=== PATIENT | female | born 1995 | race Caucasian/White ===

== ENCOUNTER 2019-06-11 17:44 | Inpatient (IN) | payer OTHER ==
[~2019-06-11] VITALS: Ht 172.7 cm; Wt 81.8 kg
[2019-06-11 17:58] VITALS: BP 143/93
[2019-06-11 18:45] LABS: BASOPHILS # (AUTO) 0.05 x10^3/uL (0-0.1); BASOPHILS % (AUTO) 1 % (0-1); EOSINOPHILS # (AUTO) 0.08 x10^3/uL (0-0.4); EOSINOPHILS % (AUTO) 1 % (1-7); LYMPHOCYTES # (AUTO) 1.97 x10^3/uL (1-3.4); LYMPHOCYTES % (AUTO) 20 % (22-44); MD NO; MEAN CORPUSCULAR HEMOGLOBIN 31.8 pg (27.0-34.8); MEAN CORPUSCULAR HGB CONC 33.5 g/dL (32.4-35.8); MEAN CORPUSCULAR VOLUME 94.8 fL (80-100); MEAN PLATELET VOLUME 7.9 fL (7.4-10.4); MONOCYTES % (AUTO) 9 % (2-9); NEUTROPHILS # (AUTO) 6.85 x10^3/uL (1.8-6.8); NEUTROPHILS % (AUTO) 70 % (42-75); PLATELET COUNT 171 x10^3/uL (130-400); RED BLOOD COUNT 3.91 x10^6/uL (3.82-5.3); RED CELL DISTRIBUTION WIDTH 13.7 % (9.6-15.2)
[2019-06-11 18:48] LABS: MICROSCOPIC INDICATED
[2019-06-11 18:56] LABS: ALANINE AMINOTRANSFERASE 16 U/L (12-78); ALBUMIN 2.5 g/dL (3.4-5.0); ANION GAP 6 mmol/L (5-15); CALCIUM 8.5 mg/dL (8.5-10.1); CHLORIDE 107 mmol/L (98-107); CREATININE 0.86 mg/dL (0.55-1.02)
[2019-06-11 19:03] LABS: ALKALINE PHOSPHATASE 117 U/L (45-117); BILIRUBIN,TOTAL 0.2 mg/dL (0.2-1.0)
[2019-06-11] MEDS ORDERED: OXYTOCIN 30U/ 0.9% NaCL 500ML 500 ML IV ONE (20:46)
[2019-06-11] MEDS ORDERED: D5%-LACTATED RINGERS 1,000 ML IV SCH (20:46)
[2019-06-11] MEDS ORDERED: FENTANYL PF 100 MCG/2ML IV PRN (21:00)
[2019-06-11] MEDS ORDERED: CALCIUM CARBONATE 500 MG TAB.CHEW PO PRN (21:00)
[2019-06-11] MEDS ORDERED: FENTANYL PF 100 MCG/2ML IVPush PRN (21:00)
[2019-06-11] MEDS ORDERED: TERBUTALINE 1 MG/ML, 1ML IVPush PRN (21:00)
[2019-06-11] MEDS ORDERED: ONDANSETRON 2MG/ML, 2ML IVPush PRN (21:00)
[2019-06-11] MEDS ORDERED: MISOPROSTOL 25 MCG TABLET VG PRN (21:00)
[2019-06-11] MEDS ORDERED: TERBUTALINE 1 MG/ML, 1ML SQ PRN (21:00)
[2019-06-11 21:12] LABS: BASOPHILS # (AUTO) 0.04 x10^3/uL (0-0.1); BASOPHILS % (AUTO) 0 % (0-1); EOSINOPHILS # (AUTO) 0.07 x10^3/uL (0-0.4); EOSINOPHILS % (AUTO) 1 % (1-7); LYMPHOCYTES # (AUTO) 2.32 x10^3/uL (1-3.4); LYMPHOCYTES % (AUTO) 22 % (22-44); MD NO; MEAN CORPUSCULAR HEMOGLOBIN 31.6 pg (27.0-34.8); MEAN CORPUSCULAR HGB CONC 33.2 g/dL (32.4-35.8); MEAN CORPUSCULAR VOLUME 95.2 fL (80-100); MEAN PLATELET VOLUME 8.1 fL (7.4-10.4); MONOCYTES % (AUTO) 8 % (2-9); NEUTROPHILS # (AUTO) 7.43 x10^3/uL (1.8-6.8); NEUTROPHILS % (AUTO) 69 % (42-75); PLATELET COUNT 178 x10^3/uL (130-400); RED BLOOD COUNT 4.08 x10^6/uL (3.82-5.3); RED CELL DISTRIBUTION WIDTH 14.1 % (9.6-15.2)
[2019-06-11] MEDS ORDERED: MISOPROSTOL 25 MCG TABLET ONE (22:16)
[2019-06-12] MEDS ORDERED: OXYTOCIN 30U/ 0.9% NaCL 500ML 500 ML IV PRN (02:30)
[2019-06-12] MEDS ORDERED: OXYTOCIN 30U/ 0.9% NaCL 500ML 500 ML ONE ×2 (02:34→19:32)
[2019-06-12] MEDS: LACTATED RINGERS 1,000 ML IV SCH ×5 (04:27→17:48)
[2019-06-12] MEDS ORDERED: PREN1TAB60 PO (07:19)
[2019-06-12] MEDS ORDERED: albuterol inhaler (07:19)
[2019-06-12] MEDS ORDERED: FENTANYL PF 500 MCG, BUPIVACAINE/PF 0.5%, 30ML 62.5 ML in SODIUM CHLORIDE 0.9% 177.5 ML EPIDCONT SCH (08:48)
[2019-06-12] MEDS ORDERED: FENTANYL PF 100 MCG/2ML ONE ×2 (09:46→18:52)
[2019-06-12] MEDS ORDERED: BUPIVACAINE 0.25% ONE ×2 (09:47→09:50)
[2019-06-12] MEDS ORDERED: FENTANYL/BUPIV./NS/PF 250 ML EPIDCONT ONE (09:50)
[2019-06-12] MEDS ORDERED: LIDOCAINE/PF 1%-EPI 1:200K, 30ML ONE (09:50)
[2019-06-12] MEDS ORDERED: FENTANYL/BUPIV./NS/PF 250 ML EPIDCONT SCH (10:35)
[2019-06-12] MEDS ORDERED: DIPHENHYDRAMINE 50 MG/ML, 1ML IVPush PRN (11:00)
[2019-06-12] MEDS ORDERED: LACTATED RINGERS 1,000 ML IVBOLUS PRN (11:00)
[2019-06-12] MEDS ORDERED: ONDANSETRON 2MG/ML, 2ML IVPush PRN (11:00)
[2019-06-12] MEDS ORDERED: LIDOCAINE 1%, 20ML ONE (16:11)
[2019-06-12] MEDS ORDERED: MISOPROSTOL 200 MCG TABLET ONE (16:11)
[2019-06-12] MEDS ORDERED: SIMETHICONE 80 MG CHEW TAB PO PRN (19:30)
[2019-06-12] MEDS ORDERED: ACETAMINOPHEN 325 MG TABLET PO PRN (19:30)
[2019-06-12] MEDS ORDERED: OXYcodone/APAP 5/325MG TABLET PO PRN (19:30)
[2019-06-12] MEDS ORDERED: ONDANSETRON 2MG/ML, 2ML IV PRN (19:30)
[2019-06-12] MEDS ORDERED: MISOPROSTOL 200 MCG TABLET PR PRN (19:30)
[2019-06-12] MEDS ORDERED: METHYLERGONOVINE 0.2 MG/ML IM PRN (19:30)
[2019-06-12] MEDS: OXYTOCIN 30U/ 0.9% NaCL 500ML 500 ML IV SCH (19:49)
[2019-06-12] MEDS ORDERED: OXYcodone/APAP 5/325MG TABLET ONE (20:07)
[2019-06-12] MEDS: OXYcodone/APAP 5/325MG TABLET PO PRN (20:09)
[2019-06-12] MEDS ORDERED: IBUPROFEN 600 MG TABLET ONE (20:23)
[2019-06-12] MEDS: IBUPROFEN 600 MG TABLET PO PRN (20:24)
[2019-06-12] MEDS ORDERED: MISOPROSTOL 200 MCG TABLET PR ONE (21:00)
[2019-06-12 22:00] VITALS: BP 136/90
[2019-06-13] VITALS (10 sets, daily range): BP systolic 119–138; BP diastolic 78–89
[2019-06-13] MEDS: OXYcodone/APAP 5/325MG TABLET PO PRN (00:51)
[2019-06-13 01:43] LABS: MEAN CORPUSCULAR HEMOGLOBIN 31.9 pg (27.0-34.8); MEAN CORPUSCULAR HGB CONC 33.3 g/dL (32.4-35.8); MEAN CORPUSCULAR VOLUME 95.9 fL (80-100); MEAN PLATELET VOLUME 7.5 fL (7.4-10.4); PLATELET COUNT 210 x10^3/uL (130-400); RED BLOOD COUNT 3.23 x10^6/uL (3.82-5.3); RED CELL DISTRIBUTION WIDTH 13.7 % (9.6-15.2)
[2019-06-13 02:07] LABS: BASOPHILS # (AUTO) 0.04 x10^3/uL (0-0.1); BASOPHILS % (AUTO) 0 % (0-1); EOSINOPHILS # (AUTO) 0.01 x10^3/uL (0-0.4); EOSINOPHILS % (AUTO) 0 % (1-7); LYMPHOCYTES # (AUTO) 2.13 x10^3/uL (1-3.4); LYMPHOCYTES % (AUTO) 11 % (22-44); MD SCAN; MONOCYTES # (AUTO) 0.96 x10^3/uL (0.2-0.8); MONOCYTES % (AUTO) 5 % (2-9); NEUTROPHILS # (AUTO) 15.74 x10^3/uL (1.8-6.8); NEUTROPHILS % (AUTO) 83 % (42-75)
[2019-06-13] MEDS: OXYTOCIN 30U/ 0.9% NaCL 500ML 500 ML IV SCH ×3 (02:38→11:19)
[2019-06-13] MEDS ORDERED: FENTANYL PF 100 MCG/2ML ONE ×3 (02:48→07:13)
[2019-06-13] MEDS ORDERED: MISOPROSTOL 200 MCG TABLET ONE (03:01)
[2019-06-13] MEDS ORDERED: FENTANYL PF 100 MCG/2ML IV PRN ×2 (03:30→08:30)
[2019-06-13] MEDS ORDERED: MISOPROSTOL 200 MCG TABLET PR ONE (03:30)
[2019-06-13] MEDS ORDERED: METOCLOPRAMIDE 5 MG/ML, 2ML ONE (07:13)
[2019-06-13] MEDS ORDERED: DEXAMETHASONE 4 MG/ML, 1ML ONE ×2 (07:13)
[2019-06-13] MEDS ORDERED: ONDANSETRON 2MG/ML, 2ML ONE (07:13)
[2019-06-13] MEDS ORDERED: SUCCINYLCHOLINE 20 MG/ML, 10ML ONE (07:26)
[2019-06-13] MEDS ORDERED: CEFAZOLIN 1,000 MG ONE ×2 (07:26)
[2019-06-13] MEDS ORDERED: PROPOFOL 10 MG/ML, 20ML ONE (07:26)
[2019-06-13 08:18] LABS: MEAN CORPUSCULAR HEMOGLOBIN 32.2 pg (27.0-34.8); MEAN CORPUSCULAR HGB CONC 33.7 g/dL (32.4-35.8); MEAN CORPUSCULAR VOLUME 95.5 fL (80-100); MEAN PLATELET VOLUME 7.4 fL (7.4-10.4); PLATELET COUNT 173 x10^3/uL (130-400); RED CELL DISTRIBUTION WIDTH 14.2 % (9.6-15.2)
[2019-06-13 08:21] LABS: HEMOGRAM NOTE RECHECKED
[2019-06-13] MEDS ORDERED: KETOROLAC 30 MG/1 ML ONE (08:22)
[2019-06-13] MEDS ORDERED: OXYTOCIN 30U/ 0.9% NaCL 500ML 500 ML ONE (08:23)
[2019-06-13] MEDS ORDERED: DIPHENHYDRAMINE 50 MG/ML, 1ML IVPush PRN (08:30)
[2019-06-13] MEDS ORDERED: HALOPERIDOL 5 MG/ML IV PRN (08:30)
[2019-06-13] MEDS ORDERED: ALBUTEROL SULFATE 2.5 MG/3 ML NPPB PRN (08:30)
[2019-06-13] MEDS ORDERED: ONDANSETRON 2MG/ML, 2ML IV PRN (08:30)
[2019-06-13] MEDS ORDERED: LABETALOL 5MG/ML, 20ML IV PRN (08:30)
[2019-06-13] MEDS ORDERED: OXYcodone 5 MG/5 ML ORAL.SOL UDC PO PRN (08:30)
[2019-06-13] MEDS ORDERED: DEXAMETHASONE 4 MG/ML, 1ML IV PRN (08:30)
[2019-06-13] MEDS ORDERED: MORPHINE SULFATE 4 MG/ML, 1ML IVPush PRN (08:30)
[2019-06-13 08:45] LABS: BASOPHILS # (AUTO) 0.04 x10^3/uL (0-0.1); BASOPHILS % (AUTO) 0 % (0-1); EOSINOPHILS # (AUTO) 0.01 x10^3/uL (0-0.4); EOSINOPHILS % (AUTO) 0 % (1-7); LYMPHOCYTES # (AUTO) 2.31 x10^3/uL (1-3.4); LYMPHOCYTES % (AUTO) 16 % (22-44); MD SCAN; MONOCYTES # (AUTO) 1.06 x10^3/uL (0.2-0.8); MONOCYTES % (AUTO) 7 % (2-9); NEUTROPHILS # (AUTO) 11.49 x10^3/uL (1.8-6.8); NEUTROPHILS % (AUTO) 77 % (42-75)
[2019-06-13] MEDS ORDERED: IBUPROFEN 600 MG TABLET ONE (09:40)
[2019-06-13] MEDS: IBUPROFEN 600 MG TABLET PO PRN ×2 (09:41→18:05)
[2019-06-13] MEDS ORDERED: PRENATAL VIT/IRON/FA 1 EACH TABLET ONE (11:21)
[2019-06-13] MEDS: PRENATAL VIT/IRON/FA 1 EACH TABLET PO SCH (11:23)
[2019-06-13 16:30] LABS: MD YES; MEAN CORPUSCULAR HEMOGLOBIN 31.4 pg (27.0-34.8); MEAN CORPUSCULAR HGB CONC 32.8 g/dL (32.4-35.8); MEAN CORPUSCULAR VOLUME 95.5 fL (80-100); MEAN PLATELET VOLUME 7.7 fL (7.4-10.4); PLATELET COUNT 180 x10^3/uL (130-400); RED BLOOD COUNT 2.16 x10^6/uL (3.82-5.3); RED CELL DISTRIBUTION WIDTH 14.2 % (9.6-15.2)
[2019-06-13 16:41] LABS: BAND#(MANUAL) 1.31 x10^3/uL; BANDS%(MANUAL) 8 % (0-7); LYMPH#(MANUAL) 1.97 x10^3/uL (1-3.4); LYMPHS% (MANUAL) 12 % (22-44); SEG#(MANUAL) 13.12 x10^3/uL (1.8-6.8); SEGS% (MANUAL) 80 % (42-75)
[2019-06-13 16:42] LABS: <PLATELET ESTIMATE> ADEQUATE; <PLT MORPHOLOGY> NORMAL PLT MORPH; <RBC MORPHOLOGY> NORMAL
[2019-06-14] VITALS (10 sets, daily range): BP systolic 122–142; BP diastolic 76–88
[2019-06-14] MEDS: OXYcodone/APAP 5/325MG TABLET PO PRN ×3 (03:53→15:39)
[2019-06-14] MEDS: IBUPROFEN 600 MG TABLET PO PRN ×3 (03:54→18:19)
[2019-06-14 06:07] LABS: BASOPHILS # (AUTO) 0.04 x10^3/uL (0-0.1); BASOPHILS % (AUTO) 0 % (0-1); EOSINOPHILS # (AUTO) 0.08 x10^3/uL (0-0.4); EOSINOPHILS % (AUTO) 1 % (1-7); LYMPHOCYTES # (AUTO) 2.69 x10^3/uL (1-3.4); LYMPHOCYTES % (AUTO) 21 % (22-44); MD NO; MEAN CORPUSCULAR HEMOGLOBIN 30.6 pg (27.0-34.8); MEAN CORPUSCULAR HGB CONC 33.7 g/dL (32.4-35.8); MEAN CORPUSCULAR VOLUME 90.8 fL (80-100); MONOCYTES # (AUTO) 0.81 x10^3/uL (0.2-0.8); MONOCYTES % (AUTO) 6 % (2-9); NEUTROPHILS # (AUTO) 9.37 x10^3/uL (1.8-6.8); NEUTROPHILS % (AUTO) 72 % (42-75); PLATELET COUNT 177 x10^3/uL (130-400); RED CELL DISTRIBUTION WIDTH 18.5 % (9.6-15.2)
[2019-06-14] MEDS: DOCUSATE 100 MG CAPSULE PO PRN (08:26)
[2019-06-14] MEDS: PRENATAL VIT/IRON/FA 1 EACH TABLET PO SCH (08:26)
[2019-06-14] MEDS: FERROUS SULFATE 325 MG TABLET PO SCH ×2 (08:26→18:19)
[2019-06-14] MEDS: OXYTOCIN 30U/ 0.9% NaCL 500ML 500 ML IV SCH ×2 (11:19→21:19)
[2019-06-14 15:13] LABS: BASOPHILS # (AUTO) 0.03 x10^3/uL (0-0.1); BASOPHILS % (AUTO) 0 % (0-1); EOSINOPHILS # (AUTO) 0.04 x10^3/uL (0-0.4); EOSINOPHILS % (AUTO) 0 % (1-7); LYMPHOCYTES # (AUTO) 2.65 x10^3/uL (1-3.4); LYMPHOCYTES % (AUTO) 21 % (22-44); MD SCAN; MEAN CORPUSCULAR HEMOGLOBIN 30.1 pg (27.0-34.8); MEAN CORPUSCULAR HGB CONC 32.9 g/dL (32.4-35.8); MEAN CORPUSCULAR VOLUME 91.5 fL (80-100); MEAN PLATELET VOLUME 7.2 fL (7.4-10.4); MONOCYTES # (AUTO) 0.74 x10^3/uL (0.2-0.8); MONOCYTES % (AUTO) 6 % (2-9); NEUTROPHILS # (AUTO) 9.21 x10^3/uL (1.8-6.8); NEUTROPHILS % (AUTO) 73 % (42-75); PLATELET COUNT 197 x10^3/uL (130-400); RED BLOOD COUNT 2.71 x10^6/uL (3.82-5.3); RED CELL DISTRIBUTION WIDTH 17.2 % (9.6-15.2)
[2019-06-15 03:30] VITALS: BP 131/89
[2019-06-15] MEDS: OXYTOCIN 30U/ 0.9% NaCL 500ML 500 ML IV SCH (07:19)
[2019-06-15 07:30] VITALS: BP_SYST 102; BP_SYST 135; BP_DIAS 71; BP_DIAS 88
[2019-06-15 07:57] LABS: MEAN CORPUSCULAR HEMOGLOBIN 30.1 pg (27.0-34.8); MEAN PLATELET VOLUME 6.8 fL (7.4-10.4); PLATELET COUNT 230 x10^3/uL (130-400); RED BLOOD COUNT 2.48 x10^6/uL (3.82-5.3); RED CELL DISTRIBUTION WIDTH 17.5 % (9.6-15.2)
[2019-06-15 08:06] LABS: BASOPHILS # (AUTO) 0.02 x10^3/uL (0-0.1); BASOPHILS % (AUTO) 0 % (0-1); EOSINOPHILS # (AUTO) 0.11 x10^3/uL (0-0.4); EOSINOPHILS % (AUTO) 1 % (1-7); LYMPHOCYTES % (AUTO) 27 % (22-44); MD SCAN; MONOCYTES # (AUTO) 0.43 x10^3/uL (0.2-0.8); MONOCYTES % (AUTO) 5 % (2-9); NEUTROPHILS # (AUTO) 5.93 x10^3/uL (1.8-6.8); NEUTROPHILS % (AUTO) 67 % (42-75)
[2019-06-15] MEDS: FERROUS SULFATE 325 MG TABLET PO SCH (08:24)
[2019-06-15] MEDS: PRENATAL VIT/IRON/FA 1 EACH TABLET PO SCH (08:24)
[2019-06-15] MEDS: DOCUSATE 100 MG CAPSULE PO PRN (08:24)
[2019-06-15] MEDS ORDERED: DOCU-131 PO (09:25)
[2019-06-15] MEDS ORDERED: FERR325T5 PO (09:27)
[2019-06-15] MEDS ORDERED: IBUP-1222 PO (09:28)
[2019-06-15 14:23] VITALS: BP 143/94
== END 2019-06-15 16:31 | disposition home or self-care (01) | DRG 806 ==
LOC: LDOP 17:44 → LDIP 20:58 → 2NW 06-12 21:36
PROVIDERS: ADMIT Obstetrics & Gynecology; ATTEND Obstetrics & Gynecology
PROC: 10E0XZZ Delivery of Products of Conception, External Approach (ICD-10-PCS; principal; 2019-06-12)
PROC: 0KQM0ZZ Repair Perineum Muscle, Open Approach (ICD-10-PCS; 2019-06-12)
PROC: 10907ZC Drainage of Amniotic Fluid, Therapeutic from Products of Conception, Via Natural or Artificial Opening (ICD-10-PCS; 2019-06-12)
PROC: 3E0R3BZ Introduction of Anesthetic Agent into Spinal Canal, Percutaneous Approach (ICD-10-PCS; 2019-06-12)
PROC: 00HU33Z Insertion of Infusion Device into Spinal Canal, Percutaneous Approach (ICD-10-PCS; 2019-06-12)
PROC: 3E033VJ Introduction of Other Hormone into Peripheral Vein, Percutaneous Approach (ICD-10-PCS; 2019-06-12)
PROC: 10D07Z8 Extraction of Products of Conception, Other, Via Natural or Artificial Opening (ICD-10-PCS; 2019-06-13)
PROC: 30233N1 Transfusion of Nonautologous Red Blood Cells into Peripheral Vein, Percutaneous Approach (ICD-10-PCS; 2019-06-13)
DX: O13.4 Gestational [pregnancy-induced] hypertension without significant proteinuria, complicating childbirth (principal); D62 Acute posthemorrhagic anemia; Z37.0 Single live birth; O99.52 Diseases of the respiratory system complicating childbirth; Z3A.37 37 weeks gestation of pregnancy; J45.909 Unspecified asthma, uncomplicated; O14.04 Mild to moderate pre-eclampsia, complicating childbirth; O70.1 Second degree perineal laceration during delivery; O72.1 Other immediate postpartum hemorrhage; Z90.49 Acquired absence of other specified parts of digestive tract; O90.81 Anemia of the puerperium
CPT/HCPCS: 36415; 80053; 81001; 82570; 84156; 84550; 85025; 86592; 86850; 86900; 86923; 89060; G0378; J0690; J1100; J2405; J2704; J3010; J3490; J0330; J2590; J2765; J7120; P9016; Q0114

== ENCOUNTER 2019-07-06 14:44 | Observation (INO) | payer BC, OTHER ==
[~2019-07-06] VITALS: Ht 172.7 cm; Wt 73.0 kg
[~2019-07-06 14:44] MED LIST: DOCU-131 PO; FERR325T5 PO; IBUP-1222 PO; PREN1TAB60 PO; albuterol inhaler
[2019-07-06] MEDS ORDERED: SODIUM CHLORIDE 0.9% 1,000ML IVBOLUS ONE (15:00)
[2019-07-06] MEDS ORDERED: SODIUM CHLORIDE FLUSH 10ML SYR IVF ONE (15:00)
[2019-07-06 15:15] LABS: BASOPHILS # (AUTO) 0.02 x10^3/uL (0-0.1); BASOPHILS % (AUTO) 0 % (0-1); EOSINOPHILS # (AUTO) 0.11 x10^3/uL (0-0.4); EOSINOPHILS % (AUTO) 2 % (1-7); LYMPHOCYTES # (AUTO) 2.32 x10^3/uL (1-3.4); LYMPHOCYTES % (AUTO) 37 % (22-44); MD NO; MEAN CORPUSCULAR HEMOGLOBIN 30.8 pg (27.0-34.8); MEAN CORPUSCULAR VOLUME 93.5 fL (80-100); MEAN PLATELET VOLUME 6.5 fL (7.4-10.4); MONOCYTES # (AUTO) 0.37 x10^3/uL (0.2-0.8); MONOCYTES % (AUTO) 6 % (2-9); NEUTROPHILS # (AUTO) 3.52 x10^3/uL (1.8-6.8); NEUTROPHILS % (AUTO) 56 % (42-75); PLATELET COUNT 328 x10^3/uL (130-400); RED BLOOD COUNT 3.11 x10^6/uL (3.82-5.3); RED CELL DISTRIBUTION WIDTH 16.8 % (9.6-15.2)
--- NOTE | 2019-07-06 15:19 | NUR ---
pt wheeled back to room. changed into gown, resting on sumit, friend at BS. Juan COLLAZO at BS for Eval and to discuss POC. pt NAD, on monitor, P/W/D, RESP WNL, FCS no SOB noted. WCTM.
[2019-07-06 15:21] LABS: INTERNATIONAL NORMALIZED RATIO 0.92 (0.93-1.1); PROTHROMBIN TIME 9.7 Seconds (9.6-11.5)
--- NOTE | 2019-07-06 15:25 | NUR ---
PT TO US, resting on gurney, pt NAD, P/W/D, RESP WNL, FCS no SOB noted. WCTM.
--- NOTE | 2019-07-06 15:52 | NUR ---
Pt back from [place] via on sumit, pt NAD, P/W/D, RESP WNL. WCTM.
--- NOTE | 2019-07-06 16:30 | NUR ---
Late Entry: Pt resting on gufreddie, friend at BS. pt NAD, on monitor, P/W/D, RESP WNL, FCS no SOB noted. WCTM. given pump for breast milk.
--- NOTE | 2019-07-06 17:30 | NUR ---
Pt resting on gufreddie, friend at . pt NAD, on monitor, P/W/D, RESP WNL, FCS no SOB noted. Denies additional needs at this time, call light on lap, WCTM.
--- NOTE | 2019-07-06 18:27 | NUR ---
Pt resting on gurney, friend at BS. pt NAD, on monitor, P/W/D, RESP WNL, FCS no SOB noted. WCTM. Report called to OR. Pt to go up in the next 10-15 minutes.
--- NOTE | 2019-07-06 18:37 | NUR ---
pt to going to OR via [employer], all belongings in bag and taken with, pt NAD, P/W/D, VSS.
[2019-07-06 18:38] VITALS: BP 106/66
[2019-07-06] MEDS ORDERED: MISOPROSTOL 200 MCG TABLET ONE (18:40)
[2019-07-06] MEDS ORDERED: SODIUM CHLORIDE 0.9% 50 ML ONE (18:41)
[2019-07-06] MEDS ORDERED: OXYTOCIN 10 UNITS/ML, 1ML ONE (18:41)
[2019-07-06] MEDS ORDERED: VASOPRESSIN 20 UNIT/ML, 1ML ONE (18:41)
[2019-07-06] MEDS ORDERED: SILVER NITRATE STICK TP ONE (18:41)
[2019-07-06] MEDS ORDERED: METHYLERGONOVINE 0.2 MG/ML IM ONE (18:41)
[2019-07-06] MEDS ORDERED: ONDANSETRON 2MG/ML, 2ML IV PRN (19:00)
[2019-07-06] MEDS ORDERED: LORazepam 2 MG/ML, 1ML IVPush PRN (19:00)
[2019-07-06] MEDS ORDERED: OXYcodone 5 MG/5 ML ORAL.SOL UDC PO PRN (19:00)
[2019-07-06] MEDS ORDERED: HYDROmorphone 2 MG/ML, 1ML IVPush PRN (19:00)
[2019-07-06] MEDS ORDERED: ACETAMINOPHEN 325 MG TABLET PO PRN (19:00)
[2019-07-06] MEDS ORDERED: FENTANYL PF 100 MCG/2ML IV PRN (19:00)
[2019-07-06] MEDS ORDERED: CEFAZOLIN 1,000 MG ONE (19:03)
[2019-07-06] MEDS ORDERED: SUCCINYLCHOLINE 20 MG/ML, 10ML ONE (19:03)
[2019-07-06] MEDS ORDERED: ROCURONIUM 10 MG/ML,10ML ONE (19:03)
[2019-07-06] MEDS ORDERED: ONDANSETRON 2MG/ML, 2ML ONE (19:03)
[2019-07-06] MEDS ORDERED: PROPOFOL 10 MG/ML, 20ML ONE (19:03)
== END 2019-07-06 22:30 | disposition home or self-care (01) ==
LOC: ED 16:17 → 4NE 21:43 → INTOOBSV 21:43
PROVIDERS: ADMIT Obstetrics & Gynecology Maternal & Fetal Medicine; ATTEND Obstetrics & Gynecology Maternal & Fetal Medicine
DX: O72.1 Other immediate postpartum hemorrhage (principal); O99.53 Diseases of the respiratory system complicating the puerperium; J45.909 Unspecified asthma, uncomplicated
CPT/HCPCS: 36415; 59160; 76830; 84702; 85025; 85610; 88305; 99284; G0378; J0330; J0690; J2250; J2405; J2704; J3010; J7030; J2210; J2590

== ENCOUNTER 2020-01-31 16:48 | Emergency (ER) | payer OTHER, BC ==
[~2020-01-31] VITALS: Ht 172.7 cm; Wt 65.3 kg
--- NOTE | 2020-01-31 17:15 | NUR ---
EKG IN TRIAGE
--- NOTE | 2020-01-31 17:36 | NUR ---
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
--- NOTE | 2020-01-31 17:57 | NUR ---
DORON COLLAZO AT .
[2020-01-31 18:33] LABS: BASOPHILS % (AUTO) 1 % (0-1); EOSINOPHILS % (AUTO) 3 % (1-7); LYMPHOCYTES % (AUTO) 39 % (22-44); MEAN CORPUSCULAR HEMOGLOBIN 30.6 pg (27.0-34.8); MEAN CORPUSCULAR HGB CONC 33.3 g/dL (32.4-35.8); MEAN PLATELET VOLUME 7.5 fL (7.4-10.4); MONOCYTES % (AUTO) 6 % (2-9); NEUTROPHILS % (AUTO) 51 % (42-75); PLATELET COUNT 220 x10^3/uL (130-400); RED BLOOD COUNT 4.63 x10^6/uL (3.82-5.3)
[2020-01-31 18:34] LABS: MD NO
[2020-01-31 18:38] LABS: ANION GAP 4 mmol/L (5-15); CALCIUM 9.2 mg/dL (8.5-10.1); CHLORIDE 106 mmol/L (98-107); CREATININE 0.94 mg/dL (0.55-1.02)
[2020-01-31 18:39] LABS: ALBUMIN 4.5 g/dL (3.4-5.0)
[2020-01-31 18:43] LABS: TROPONIN I < 0.015 ng/mL (0.000-0.045)
[2020-01-31 19:29] VITALS: BP 105/59
--- NOTE | 2020-01-31 20:24 | NUR ---
D/C INSTRUCTIONS & F/U APPT PROVIDED TO PT BY ROBYN GREY. Addendum: 01/31/20 at 2023 by IRENA PT AMBULATED OUT OF ED WITHOUT DIFFICULTY.
== END 2020-01-31 19:31 | disposition home or self-care (01) ==
LOC: ED 18:07
DX: R07.89 Other chest pain (principal); R42 Dizziness and giddiness; R06.02 Shortness of breath; R05 Cough; J45.909 Unspecified asthma, uncomplicated
CPT/HCPCS: 36415; 71045; 80048; 82040; 84484; 84703; 85025; 85379; 93005; 99285